=== PATIENT | female | born 1985 | race Caucasian/White ===

== ENCOUNTER → 2016-10-01 | Outpatient (CLI) | payer OTHER | LOC: FIMAGING 11:17 | PROVIDERS: ATTEND Internal Medicine | DX: N92.0 Excessive and frequent menstruation with regular cycle (principal); N85.4 Malposition of uterus ==

== ENCOUNTER 2017-02-13 10:21 | Emergency (ER) | payer OTHER ==
[2017-02-13 10:30] VITALS: RESP 16; TEMP 98.6
--- NOTE | 2017-02-13 10:31 | EDPHY ---
H & P Stated Complaint: heavy menstrual blding(since 06/30 worse x1 day)hysterectomy sched next week HPI/ROS: CHIEF COMPLAINT: Vaginal bleeding HISTORY OF PRESENT ILLNESS: This patient is a 31 year old female with history of heavy vaginal bleeding ongoing since June, complaining of worsening bleeding onset last night. She is scheduled for hysterectomy 02/20/[address] Hidalgo, HEALTH AND WELLNESS MANAGER. Last night, she bled through seven overnight pads in about 1.5 hours. This morning, her bleeding is still heavy, and she has used five or six pads in the past two hours. She complains of unusually painful cramping as well. She states the etiology of this condition remains unknown. The patient spoke with Dr. Hidalgo' office on the phone this morning and staff suggested she present to the emergency department for evaluation and laboratory studies. She denies fever, lightheadedness, syncope, or other associated symptoms. REVIEW OF SYSTEMS: A ten point review of systems was performed and is negative with the exception of the items mentioned in the HPI. Past medical history: 1. Anxiety (Abilify, lamotrigine, lithium, trazodone) Past surgical history: 1. Cesarian section x 2 2. Hernia repair Family history: Noncontributory. Social history: Nonsmoker. . at bedside. Lives in [place]. General Appearance: Alert. Vital signs reviewed. Blood pressure 134/72. Eyes: Pupils equal and round, no conjunctival injection, no discharge. Anicteric. Neck: No lymphadenopathy, supple. Respiratory: Lungs are clear to auscultation; no wheezes, rales, or rhonchi. Cardiovascular: Regular rate and rhythm; no murmur, rub, or gallop. Gastrointestinal: Suprapubic tenderness. Abdomen is obese, soft, no masses or organomegaly appreciated, bowel sounds normal. Skin: Warm and dry, no rashes on exposed skin, normal color. Back: Nontender to palpation over the thoracolumbar spine. No CVAT. Genitourinary: Moderate amount of blood in the vaginal vault. Cervix is closed. No cervical motion tenderness. Unable to assess ovaries due to patient 's body habitus. Extremities: No lower extremity edema, no calf tenderness or swelling. Neurological: Alert and oriented. Moving all four extremities easily and equally. Psychiatric: Normal affect. - Personal History LMP (Females 10-55): Now Current Tetanus/Diphtheria Vaccine: Unsure Current Tetanus Diphtheria and Acellular Pertussis (TDAP): Unsure - Medical/Surgical History Hx Asthma: No Hx Chronic Respiratory Disease: No Hx Diabetes: No Hx Cardiac Disease: No Hx Renal Disease: No Hx Cirrhosis: No Hx Alcoholism: No Hx HIV/AIDS: No Hx Splenectomy or Spleen Trauma: No Other PMH: hernia surgery 2016. c sec x 2. anxiety - Social History Smoking Status: Never smoked Constitutional: Initial Vital Signs Temperature (C) 37.0 C 02/13/17 10:24 Heart Rate 87 02/13/17 10:24 Respiratory Rate 16 02/13/17 10:24 Blood Pressure 134/72 H 02/13/17 10:24 O2 Sat (%) 96 02/13/17 10:24 O2 Delivery Mode Room Air Allergies/Adverse Reactions: No Known Allergies Allergy (Verified 02/13/17 10:23) Home Medications: Medication Instructions Recorded ARIPiprazole [Abilify 10 mg (*)] 10 mg PO DAILY 01/19/17 Ferrous Sulfate [Ferrous Sulf 325 325 mg PO DAILY 01/19/17 MG (*)] [place] Carbonate ER [Eskalith Cr 900 mg PO DAILY 01/19/17 450 mg (*)] lamoTRIgine [LamICTAL 100 MG (*)] 200 mg PO DAILY 01/19/17 traZODone [traZODone 150MG (*)] 150 mg PO HS 01/19/17 Hydrocodone/APAP 5/325 [H[place]itage 1 - 2 tab PO Q4 PRN #10 tab 02/13/17 5/325 (RX)] Medical Decision Making ED Course/Re-evaluation: 31 year old female presents with vaginal bleeding and painful cramping. Plan for labs including CBC, chemistries, BHCG. Plan for consult with Dr. Hidalgo. 11:38 Spoke with nurse for Dr. Hidalgo, who spoke with the patient earlier today. Plan to administer 30mg IV Ketorolac for pain relief. Beta HCG is negative. Hemoglobin hematocrit are 11.7 and 36, stable when compared to previous values. Plan to discharge home. No signs of hemodynamic instability. She is scheduled for hysterectomy within a week. She will treat her cramping with over-the- counter pain medications. I have advised her to consult with her surgeon about the use of ibuprofen/NSAIDs preoperatively. Patient will follow up with Dr. Hidalgo as scheduled. Differential Diagnosis: I considered a differential diagnosis that includes but is not limited to , threatened , fibroids, ovulatory dysfunction, irregular menses, bleeding disorder, and malignancy. - Data Points Laboratory Results: Laboratory Results 02/13/17 11:03 02/13/17 11:03 Medications Given: Discontinued Medications Ketorolac Tromethamine (Toradol) 30 mg IVP EDNOW ONE Stop: 02/13/17 11:39 Last Admin: 02/13/17 12:01 Dose: 30 mg Departure - Departure Disposition: Home, Routine, Self-Care Clinical Impression: Dysfunctional uterine bleeding Condition: Good Instructions: Dysfunctional Uterine Bleeding (ED) Additional Instructions: Use the pain medication as prescribed --if needed. I recommend starting with ibuprofen 400-600 mg every 6 hr with food. You can also take Tylenol and ibuprofen. I am writing a prescription for small quantity of Hermitage. These contain Tylenol (325 mg) in each pill so you need to watch your overall Tylenol dose. Do not take more than 3000 mg of Tylenol in a 24 hr time period. Keep your appointment with Dr. Hidalgo' office on Thursday. Make sure you know what medications you can continue preoperatively. Referrals: Oscar Justice MD [Primary Care Provider] - As per Instructions Mary Hidalgo MD [Medical Doctor] - As per Instructions Prescriptions: Hydrocodone/APAP 5/325 [Hermitage 5/325 (RX)] 1 - 2 tab PO Q4 PRN #10 tab PRN Reason: pain Report Scribed for: Dayami Dobson Report Scribed by: Elsy Christy Date of Report: 02/13/17 Time of Report: 10:42 Physician Review and Approval Statement: 02/13/17 10:31 Portions of this note were transcribed by the medical terminologist. I, Dr. Dayami Dobson, personally performed the history, physical exam, and medical decision- making; and confirmed the accuracy of the information in the transcribed note.
[2017-02-13 11:10] LABS: % IMMATURE GRANULYOCYTES 0.3 % (0.0-1.1); ABSOLUTE IMMATURE GRANULOCYTES 0.02 10^3/uL (0.00-0.10); ADD DIFF? NO; ADD MORPH? NO; ADD SCAN? NO; ATYPICAL LYMPHOCYTE FLAG 0 (0-99); FRAGMENT RBC FLAG 0 (0-99); HEMOGLOBIN 11.7 g/dL (12.6-16.3); LEFT SHIFT FLG 0 (0-99); LIPEMIA HEMOLYSIS FLAG 80 (0-99); MEAN CELL HEMOGLOBIN 28.3 pg (27.9-34.1); MEAN CELL HEMOGLOBIN CONCENTR. 32.5 g/dL (32.4-36.7); MEAN PLATELET VOLUME 10.5 fL (8.7-11.7); PLATELET CLUMPS FLAG 0 (0-99); PLATELET COUNT 301 10^3/uL (150-400); RED BLOOD CELL COUNT 4.14 10^6/uL (4.18-5.33); RED CELL DISTRIBUTION WIDTH 13.2 % (11.5-15.2)
[2017-02-13 11:34] LABS: ANION GAP 12 mEq/L (8-16); CALCIUM 9.8 mg/dL (8.5-10.4); CARBON DIOXIDE 26 mEq/l (22-31); CHLORIDE 104 mEq/L (97-110); CREATININE 0.8 mg/dL (0.6-1.0); GLOMERULAR FILTRATION RATE > 60; GLUCOSE 106 mg/dL (70-100); POTASSIUM 4.2 mEq/L (3.5-5.2); SODIUM 142 mEq/L (134-144)
[2017-02-13] MEDS ORDERED: KETOROLAC 30 MG/1 ML SDV IVP ONE (11:38)
[2017-02-13 12:19] VITALS: BP 125/74; PULSE 84; O2SAT 97
== END 2017-02-13 12:17 | disposition home or self-care (01) ==
DX: N93.9 Abnormal uterine and vaginal bleeding, unspecified (principal)
CPT/HCPCS: 96374; J1885

== ENCOUNTER 2017-02-20 05:32 | Observation (INO) | payer OTHER ==
--- NOTE | 2017-02-19 21:56 | GHP ---
[f rep st] PREOP HISTORY AND PHYSICAL DATE OF ADMISSION: 02/20/2017 DATE OF PLANNED SURGERY: 02/20/2017 on the Gynecology Service. HISTORY UPON PRESENTATION: The patient is a 31-year-old G3, P2, A1 who has had a long history of sig nificant menorrhagia with more dysfunctional uterine bleeding this year. The patient has had irregul arity to her cycles all her life since menarche at age 15. In 2016, patient has had increasing dysfu nction with spacing up to 2 months and then bleeding for 2-3 weeks. The patient will have light flow for several weeks and then have a very heavy flow for 7+ days. Currently, the patient has had dysfu nctional bleeding since December with dramatic increase in flow on February 13. At that time, she pres ented to the emergency room. She was felt to be hemodynamically stable and hematocrit of 36, which w as unchanged from December 16. The patient reports after the flow increased on the she was wearing a Depends diaper with a large pad in it and changing that every 3 hours, soaked with clots. Upon ev aluation on 02/17, at the time of preop, the patient's hematocrit dropped to 30%. The patient was gi nelli Norman in the emergency room for management of the severe cramping with passing clots. The patien t reports has no difficulty with urination. She has been having regular bowel movements despite the Norman. The patient occasionally has lightheadedness and generally noticing more fatigued. The patie nt has tried multiple systemic hormones, including DMPA, control patches, multiple different ty pes of pills. The patient had different complications with migraines, cramping, and breakthrough ble eding. The patient adamantly refuses a Mirena IUD. The patient had an ultrasound performed in September 2016 that showed uterus 8.4 x 5.9 x 5.3 cm with a thickened heterogeneous endometrium of 17 mm. Bila terally, the ovaries were normal. The patient had an endometrial biopsy performed in December which s howed disordered proliferative endometrium with no hyperplasia. The patient is counseled as to the o ptions and wants to proceed with definitive management of a hysterectomy. Patient is counseled about removing her tubes and wants to proceed with a bilateral salpingectomy. The risks and benefits of t he surgery were discussed with the patient and the consent form signed. PAST MEDICAL HISTORY: The patient has bipolar disorder, as well as generalized anxiety disorder, his tory of insomnia, and irregular menses as noted above. PAST SURGICAL HISTORY: 1987 pyloric stenosis, 1994 tonsillectomy, 2006 and 2013 sections. In December 2015, umbilical hernia repair. PAST OBSTETRIC HISTORY: In 2006, a section of a term without complications. In 2007 , an early miscarriage. In 2013, a repeat section at term with a complicated by s welling and bleeding. PAST GYNECOLOGIC HISTORY: No history of abnormal Pap smears. The last one was December 2016 and was negative. The patient reports having HPV tested in the past and it was negative. The patient denies any sexually transmitted diseases. ALLERGIES: The patient has no known drug allergies. CURRENT MEDICATIONS: Lamictal 200 mg daily, Abilify 10 mg daily, lithium 900 mg daily. Occasionally uses hydroxyzine 50 mg p.r.n. panic attacks, trazodone 150 mg nightly. SOCIAL HISTORY: The patient is , lives with her and 2 children. The patient is a non smoker. No alcohol or drug use. REVIEW OF SYSTEMS: History of palpitations on occasion but none currently. Ten-point review of syst ems reviewed with patient, and pertinent positives and negatives noted above. PHYSICAL EXAM: GENERAL: The patient is a well-developed, well-nourished white female in no physical distress. VITAL SIGNS: The patient is clinically afebrile at the time of preop and blood pressure 118/72. Weight 271 pounds. LUNGS: Clear to auscultation bilaterally. CARDIOVASCULAR: Regular rat e and rhythm. ABDOMEN: Soft and nontender. No masses palpable. PELVIC: Exam reveals a bimanual e xam with a mobile nontender uterus. No adnexal masses noted. EXTREMITIES: Nontender. No edema. ASSESSMENT: 1. Menorrhagia with dysfunctional uterine bleeding, endometrial biopsy negative. 2. Anemia. The patient wishes to proceed with definitive management of a total laparoscopic hysterectomy and mihai ateral salpingectomies. Consent form signed. The patient is aware with her prior sections x2 that there is unpredictable scarring around the bladder that might necessitate converting to an op en surgery and also puts her bladder at increased risk of injury. PLAN: Will proceed with a hysterectomy on 02/20/2017. The patient will have a CBC on presen tation and will receive preoperative antibiotic of Ancef. The [facility]. /[id number]/MODL
[2017-02-20] MEDS ORDERED: LR 1,000 ML IV SCH ×2 (05:40→12:00)
[2017-02-20] MEDS ORDERED: LIDOCAINE 1% 2 ML INJ ID PRN (05:48)
[2017-02-20] MEDS ORDERED: LR 1,000 ML IV ONE (05:48)
[2017-02-20] MEDS ORDERED: cefOXitin SODIUM 2 GM in D5W 100 ML IV ONE ×2 (06:00→08:00)
[2017-02-20 06:42] LABS: % IMMATURE GRANULYOCYTES 0.3 % (0.0-1.1); ABSOLUTE IMMATURE GRANULOCYTES 0.02 10^3/uL (0.00-0.10); ADD DIFF? NO; ADD MORPH? NO; ADD SCAN? NO; ATYPICAL LYMPHOCYTE FLAG 0 (0-99); FRAGMENT RBC FLAG 0 (0-99); HEMATOCRIT 28.3 % (38.0-47.0); LEFT SHIFT FLG 0 (0-99); LIPEMIA HEMOLYSIS FLAG 80 (0-99); MEAN CELL HEMOGLOBIN 27.7 pg (27.9-34.1); MEAN CELL HEMOGLOBIN CONCENTR. 31.8 g/dL (32.4-36.7); MEAN CELL VOLUME 87.1 fL (81.5-99.8); MEAN PLATELET VOLUME 10.5 fL (8.7-11.7); PLATELET CLUMPS FLAG 20 (0-99); PLATELET COUNT 260 10^3/uL (150-400); RED BLOOD CELL COUNT 3.25 10^6/uL (4.18-5.33); RED CELL DISTRIBUTION WIDTH 13.4 % (11.5-15.2)
[2017-02-20] MEDS ORDERED: MIDAZOLAM 2 MG/2 ML VIAL IVP ONE (06:53)
--- NOTE | 2017-02-20 06:54 | PDANEPAE ---
ANE History of Present Illness menorrhagia ANE Past Medical History - Cardiovascular History Hx Hypertension: No Hx Arrhythmias: No Hx Chest Pain: No Hx Coronary Artery / Peripheral Vascular Disease: No Hx CHF / Valvular Disease: No Hx Palpitations: No - Pulmonary History Hx COPD: No Hx Asthma/Reactive Airway Disease: No Hx Recent Upper Respiratory Infection: No Hx Oxygen in Use at Home: No Hx Sleep Apnea: No Sleep Apnea Screening Result - Last Documented: Positive - Neurologic History Hx Cerebrovascular Accident: No Hx Seizures: No Hx Dementia: No - Endocrine History Hx Diabetes: No Hypothyroid: No Hyperthyroid: No Obesity: yes, severe - Renal History Hx Renal Disorders: No - Liver History Hx Hepatic Disorders: No - Neurological & Psychiatric Hx Hx Neurological and Psychiatric Disorders: Yes Neurological / Psychiatric History Comment: bipolar, bad anxiety - Cancer History Hx Cancer: No - Congenital Disorder History Hx Congenital Disorders: No - GI History GERD: no Hx Gastrointestinal Disorders: No - Other Health History Other Health History: abnormal uterine bleeding. anemia - Chronic Pain History Chronic Pain: No - Surgical History Prior Surgeries: umbilical hernia repair ANE Review of Systems Review of Systems: - Exercise capacity METS (RN): 4 METS ANE Patient History - Allergies Allergies/Adverse Reactions: No Known Allergies Allergy (Verified 02/13/17 10:23) - Home Medications Home Medications: ARIPiprazole [Abilify 10 mg (*)] 10 mg PO DAILY 01/19/17 [Last Taken 02/19/17] Ferrous Sulfate [Ferrous Sulf 325 MG (*)] 325 mg PO DAILY 01/19/17 [Last Taken 02/19/17] [place] Carbonate ER [Eskalith Cr 450 mg (*)] 900 mg PO DAILY 01/19/17 [Last Taken 02/19/17] lamoTRIgine [LamICTAL 100 MG (*)] 200 mg PO DAILY 01/19/17 [Last Taken 02/19/17] traZODone [traZODone 150MG (*)] 150 mg PO HS 01/19/17 [Last Taken 02/19/17] - NPO status NPO Since - Liquids (Date): 02/19/17 NPO Since - Liquids (Time): 21:30 NPO Since - Solids (Date): 02/19/17 NPO Since - Solids (Time): 21:30 - Anes Hx Anes Hx: no prior problems - Smoking Hx Smoking Status: Never smoked - Alcohol Use Alcohol Use: Rarely - Family Anes Hx Family Anes Hx: neg - N/A Family Hx Anesthesia Complications: none ANE Labs/Vital Signs - Labs Result Diagrams: 02/20/17 06:35 - Vital Signs Blood Pressure: 146/73 Heart Rate: 94 Respiratory Rate: 18 O2 Sat (%): 98 Height: 167.64 cm Weight: 127.006 kg ANE Physical Exam - Airway Neck exam: FROM Mallampati Score: Class 3 Mouth exam: normal dental/mouth exam - Pulmonary Pulmonary: no respiratory distress, no rales or rhonchi, clear to auscultation - Cardiovascular Cardiovascular: regular rate and rhythym, no murmur, rub, or gallop - ASA Status ASA Status: II ANE Anesthesia Plan Anesthesia Plan: general endotracheal anesthesia
[2017-02-20] MEDS ORDERED: BUPIVACAINE 0.5% 30 ML SDV ONE (06:58)
[2017-02-20] MEDS ORDERED: METHYLENE BLUE 0.5% 50 MG/10 ML AMP ONE ×2 (06:58→11:49)
[2017-02-20] MEDS ORDERED: SURGIFLO MATRIX KIT WITH THROMBIN 8ml TP ONE (06:58)
[2017-02-20] MEDS ORDERED: ROCURONIUM 50 MG/5 ML VIAL ONE ×2 (07:11→08:31)
[2017-02-20] MEDS ORDERED: PROPOFOL 200 MG/20 ML VIAL ONE (07:11)
[2017-02-20] MEDS ORDERED: PROPOFOL/EMULSION 500 MG/50 ML BOTTLE IV ONE ×3 (07:11→10:15)
[2017-02-20] MEDS ORDERED: ONDANSETRON 4 MG/2 ML VIAL ONE (07:11)
[2017-02-20] MEDS ORDERED: REMIFENTANIL HCL 1 MG VIAL ONE ×3 (07:11→10:15)
[2017-02-20] MEDS ORDERED: fentaNYL 100 MCG/2 ML INJ ONE ×3 (07:11→12:19)
[2017-02-20] MEDS ORDERED: DEXAMETHASONE 4 MG/ML VIAL ONE (07:11)
[2017-02-20] MEDS ORDERED: LIDOCAINE 2% 5 ML SDV ONE (07:12)
--- NOTE | 2017-02-20 07:19 | PDHPUP ---
History & Physical Update H&P update statement: This history and physical update is based on an assessment of the patient which was completed after admission or registration (within 24 hours), but prior to the surgery/procedure.
[2017-02-20] MEDS ORDERED: PHENYLEPHRINE HCL 100 MCG/ML SYR ONE (07:46)
[2017-02-20] MEDS ORDERED: ACETAMINOPHEN 500 MG TAB PO PRN (08:04)
[2017-02-20] MEDS ORDERED: PROMETHAZINE HCL 25 MG/ML INJ IVP PRN (08:04)
[2017-02-20] MEDS ORDERED: OXYCODONE/APAP 5/325 TAB PO PRN (08:04)
[2017-02-20] MEDS ORDERED: HYDROmorphONE/DILAUDID 1 MG/ML INJ IVP PRN (08:04)
[2017-02-20] MEDS ORDERED: ONDANSETRON 4 MG/2 ML VIAL IVP PRN (08:04)
[2017-02-20] MEDS ORDERED: LR 500 ML IV PRN (08:04)
[2017-02-20] MEDS ORDERED: HYDROCODONE/APAP 5/325 TAB PO PRN ×2 (08:04→11:39)
[2017-02-20] MEDS ORDERED: NALOXONE HCL 0.4 MG/ML INJ IVP PRN (08:04)
[2017-02-20] MEDS ORDERED: KETOROLAC 30 MG/1 ML SDV ONE (10:00)
[2017-02-20] MEDS ORDERED: SUGAMMADEX SODIUM 200 MG/2 ML VIAL IVP ONE (11:17)
[2017-02-20] MEDS ORDERED: BISACODYL 10 MG SUPP PR PRN (11:46)
[2017-02-20] MEDS ORDERED: POLYETHYLENE GLYCOL 3350 17 GM PKT PO PRN (11:46)
[2017-02-20] MEDS ORDERED: MAGNESIUM HYDROXIDE 30 ML UDCUP PO PRN (11:46)
[2017-02-20] MEDS ORDERED: LACTULOSE 20 GM/30 ML UDCUP PO PRN (11:46)
[2017-02-20] MEDS ORDERED: BUPIVACAINE 0.25% 30 ML SDV ONE (11:49)
--- NOTE | 2017-02-20 11:56 | POSTANESTH ---
Post Anesthetic Evaluation Cardiovascular Status: Normal, Stable Respiratory Status: Normal, Stable Level of Consciousness/Mental Status: Mildly Sleepy, Arousable Pain Control: Adequate, Prn Tx Ordered Nausea/Vomiting Control: Adequate, Prn Tx Ordered Complications Possibly Related to Anesthesia: None Noted
[2017-02-20] MEDS: fentaNYL 100 MCG/2 ML INJ IVP PRN ×3 (12:23→13:32)
--- NOTE | 2017-02-20 13:04 | POSTOPPROG ---
Post Op Note Date of Operation: 02/20/17 Surgeon: Mary Hidalgo Security Installation Sales Technician: Barb Naidu DO Anesthesiologist: Danis Maguire MD Anesthesia: GET(General Endotracheal) Pre-op Diagnosis: menorrhagia, anemia Post-op Diagnosis: same Indication: 31 y/o with yrs of menorrhagia and DUB with nl EMB, h/o CS x2, obesity Procedure: TLH, BS, cystoscopy Findings: nl ut and tubes, ov x2, ureter nl on R, unable to see L - nl fl x2 - cysto Inf/Abcess present in the surg proc area at time of surgery?: No Depth: Organ Space EBL: 100-500 (150cc) Complications: none, cysto nl Specimen(s): uterus and tubes bilat
[2017-02-20] MEDS: HYDROmorphONE/DILAUDID 2 MG/ML INJ IVP PRN ×2 (17:11→20:18)
[2017-02-20] MEDS: KETOROLAC 30 MG/1 ML SDV IVP SCH ×2 (17:30→23:42)
--- NOTE | 2017-02-20 18:42 | SOAPPROG ---
SOAP Progress Note Assessment/Plan: Assessment: POD 1/2 s/p TLH, BS pain in LLQ, better after dilaudid slight emesis after cold juice Plan: routine care, change meds to percocet - dilaudid to get on top of pain 02/20/17 18:36 Subjective: Pt doing better after dilaudid - was 9/10 pain earlier. Now 4/10 and sitting up. Will change Heath to percocet. had slight emesis after cold juice - o/w water was keon fine. Not OOB yet. No nausea. Disc usual meds and will get trazodone tonight. Objective: Vital Signs Temp Pulse Resp BP Pulse Ox 37.2 C 77 20 136/74 H 100 02/20/17 15:45 02/20/17 15:45 02/20/17 15:45 02/20/17 15:45 02/20/17 15:45 Laboratory Results 02/20/17 06:35 02/19/17 02/20/17 02/21/17 05:59 05:59 05:59 Intake Total 3520 Output Total 1200 Balance 2320 Physical Exam - Physical Exam General Appearance: WD/WN Abdomen: non-tender (approp post hyst pain), soft, other (bandaides x 3 all normal) Pelvic Exam: vaginal bleeding (none) Extremities: non-tender, pedal edema (mild) Neuro/Psych: normal mood/affect ICD10 Worksheet Patient Problems: Problems Problem Status Onset S/P laparoscopic hysterectomy Acute Status post bilateral salpingectomy Acute
[2017-02-20] MEDS: OXYCODONE/APAP 5/325 TAB PO PRN (19:13)
[2017-02-20] MEDS: ENOXAPARIN 30 MG/0.3 ML SYR SC SCH (21:30)
[2017-02-20] MEDS: SENNOSIDES/DOCUSATE SODIUM TAB PO SCH (23:43)
[2017-02-21] MEDS: KETOROLAC 30 MG/1 ML SDV IVP SCH (05:23)
[2017-02-21 06:13] LABS: % IMMATURE GRANULYOCYTES 0.2 % (0.0-1.1); ABSOLUTE IMMATURE GRANULOCYTES 0.02 10^3/uL (0.00-0.10); ADD DIFF? NO; ADD MORPH? NO; ADD SCAN? NO; ATYPICAL LYMPHOCYTE FLAG 0 (0-99); FRAGMENT RBC FLAG 0 (0-99); HEMATOCRIT 27.3 % (38.0-47.0); HEMOGLOBIN 8.4 g/dL (12.6-16.3); LEFT SHIFT FLG 0 (0-99); LIPEMIA HEMOLYSIS FLAG 80 (0-99); MEAN CELL HEMOGLOBIN 27.7 pg (27.9-34.1); MEAN CELL HEMOGLOBIN CONCENTR. 30.8 g/dL (32.4-36.7); MEAN CELL VOLUME 90.1 fL (81.5-99.8); MEAN PLATELET VOLUME 10.8 fL (8.7-11.7); PLATELET CLUMPS FLAG 0 (0-99); PLATELET COUNT 288 10^3/uL (150-400); RED BLOOD CELL COUNT 3.03 10^6/uL (4.18-5.33); RED CELL DISTRIBUTION WIDTH 13.5 % (11.5-15.2)
[2017-02-21] MEDS: HYDROmorphONE/DILAUDID 2 MG/ML INJ IVP PRN (08:14)
[2017-02-21] MEDS ORDERED: LITHIUM CARBONATE ER 450 MG TAB PO SCH (09:00)
[2017-02-21] MEDS ORDERED: ARIPiprazole 10 MG TAB PO SCH (09:00)
[2017-02-21] MEDS ORDERED: lamoTRIgine 100 MG TAB PO SCH (09:00)
--- NOTE | 2017-02-21 09:17 | SOAPPROG ---
SOAP Progress Note Assessment/Plan: Assessment: POD 1 s/p TLH, BS pain in LLQ, better after dilaudid Plan: routine care, discharge home 02/20/17 18:36 02/21/17 09:14 Subjective: Pt doing ok. Was OOB and pain increased this am and now better after IV dilaudid. Only had 2 percocet at 7:30 last noc and nothing until this am meds. Using toradol. hasn't urinated yet, ibanez removed this am. keon reg diet this am. hydrating well. has been ok up OOB - little dizziness. Objective: Vital Signs Temp Pulse Resp BP Pulse Ox 36.6 C 71 16 120/65 98 02/21/17 05:51 02/21/17 05:51 02/21/17 05:51 02/21/17 05:51 02/21/17 05:51 Laboratory Results 02/21/17 05:30 02/20/17 02/21/17 02/22/17 05:59 05:59 05:59 Intake Total 3520 Output Total 1800 Balance 1720 Physical Exam - Physical Exam General Appearance: WD/WN Abdomen: non-tender (approp post op tenderness), soft, other (bandaides x3 CDI, no drainage or bruising) Pelvic Exam: vaginal bleeding (scant) Extremities: non-tender, pedal edema (minimal) Neuro/Psych: alert (drowsy after IV meds), normal mood/affect ICD10 Worksheet Patient Problems: Problems Problem Status Onset Status post bilateral salpingectomy Acute S/P laparoscopic hysterectomy Acute
[2017-02-21 09:40] VITALS: PULSE 80
[2017-02-21] MEDS: OXYCODONE/APAP 5/325 TAB PO PRN ×2 (10:16→13:58)
[2017-02-21] MEDS: SENNOSIDES/DOCUSATE SODIUM TAB PO SCH (10:18)
[2017-02-21] MEDS: ENOXAPARIN 30 MG/0.3 ML SYR SC SCH (10:18)
[2017-02-21 13:01] VITALS: BP 116/61; RESP 18; TEMP 97.3; O2SAT 98
[2017-02-21] MEDS: IBUPROFEN 600 MG TAB PO SCH ×2 (13:59→15:54)
== END 2017-02-21 14:30 | disposition home or self-care (01) ==
LOC: F3E 05:32 → FOB 14:08
PROVIDERS: ADMIT Obstetrics & Gynecology; ATTEND Obstetrics & Gynecology
DX: N92.0 Excessive and frequent menstruation with regular cycle (principal); N93.8 Other specified abnormal uterine and vaginal bleeding; D50.0 Iron deficiency anemia secondary to blood loss (chronic)
CPT/HCPCS: G0378; J0694; J1100; J1170; J1650; J1885; J2250; J2370; J2405; J2704; J3010; Q9968